=== PATIENT | female | born 1975 | race Caucasian/White ===

== ENCOUNTER 2016-11-09 19:09 | Emergency (ER) | payer OTHER ==
[2016-11-09 20:18] LABS: BILIRUBIN NEGATIVE (NEGATIVE); BLOOD 3+ Ery/uL (NEGATIVE); CLARITY CLEAR (CLEAR); COLOR YELLOW (YELLOW); GLUCOSE (U) 3+ mg/dL (NORMAL); KETONE (U) NEGATIVE (NEGATIVE); LEUKOCYTES NEGATIVE Leu/uL (NEGATIVE); NITRITE NEGATIVE (NEGATIVE); PROTEIN NEGATIVE (NEGATIVE); UROBILINOGEN 0.2 mg/dL (0.2-1.0)
[2016-11-09 20:18] LABS: BASOPHIL 0.6 % (0-2); EOSINOPHIL 3.4 % (0-5); HCT 38.7 % (37.0-47.0); HGB 12.1 g/dl (12.5-16.0); LYMPHOCYTE 25.3 % (15-48); MCH 23.4 pg (25.0-31.0); MCHC 31.3 g/dL (32.0-36.0); MONOCYTE 6.8 % (0-12); MPV 11.2 fL (6.0-9.5); NEUTROPHIL 63.9 % (41-80); PLT 327 K/uL (150-400); RBC 5.16 M/uL (4.20-5.40); RDW 16.7 % (11.5-14.0); WBC 8.5 K/uL (4.0-10.5)
[2016-11-09 20:24] LABS: BACTERIA TRACE
[2016-11-09 20:34] LABS: INR 1.02 (0.9-1.2)
[2016-11-09 20:35] LABS: PRO-BNP 20 pg/mL (0-125); TROPONIN T < 0.010 ng/mL
[2016-11-09 20:36] LABS: ALBUMIN 4.3 g/dL (3.5-5.0); BILIRUBIN - TOTAL 0.2 mg/dL (0.1-1.0); CREATININE 0.6 mg/dL (0.5-1.0); D-DIMER 0.3 ug/mLFEU (0.00-0.41); GLOBULIN (CALCULATION) 3.3 g/dL (2.2-4.2); POTASSIUM 4.5 mmol/L (3.5-5.1); TOTAL PROTEIN 7.6 g/dL (6.4-8.3)
== END 2016-11-09 23:48 | disposition home or self-care (01) ==
LOC: FER 19:09
PROVIDERS: Emergency Medicine
DX: M54.9 Dorsalgia, unspecified (principal); R31.9 Hematuria, unspecified; R07.1 Chest pain on breathing; R06.02 Shortness of breath; E11.9 Type 2 diabetes mellitus without complications; I10 Essential (primary) hypertension; F17.210 Nicotine dependence, cigarettes, uncomplicated; Z82.49 Family history of ischemic heart disease and other diseases of the circulatory system; Z86.718 Personal history of other venous thrombosis and embolism; Z79.84 Long term (current) use of oral hypoglycemic drugs; Z79.899 Other long term (current) drug therapy; Z95.5 Presence of coronary angioplasty implant and graft
CPT/HCPCS: 36415; 71020; 80053; 81001; 83880; 84484; 85025; 85379; 85610; 85730; 87804; 87899; 93005; J1885

== ENCOUNTER → 2021-10-26 | Day surgery (SDC) | payer OTHER ==
[~2021-10-26] VITALS: Ht 172.7 cm; Wt 102.2 kg
[~2021-10-26] MED LIST: ATORVASTATIN CA20 MG PO; CITALOPRAM HBR40 MG PO; FENOGLIDE120 MG PO; GABAPENTIN 100100 MG PO; METFORMIN HCL500 M1 PO; NORCO 5-325 TA1 EACH PO; OMEGA-3 ACID ETH1 GM PO; OMEPRAZOLE 20MG20 MG PO; PROAIR HFA8.5 GM INH; TRULICITY1.5 MG/0.5 SC
[2021-10-26 08:09] LABS: HCG (URINE) SCREEN NEGATIVE (NEGATIVE)
[2021-10-26 08:28] LABS: HCT 39.3 % (37.0-47.0); HGB 12.6 g/dl (12.5-16.0); MCHC 32.1 g/dL (32.0-36.0); MCV 81.2 fL (78.0-100.0); MPV 11.4 fL (6.0-9.5); RBC 4.84 M/uL (4.20-5.40); RDW 14.2 % (11.5-14.0); WBC 6.8 K/uL (4.0-10.5)
[2021-10-26 08:52] LABS: ALBUMIN 3.7 g/dL (3.4-5.0); BILIRUBIN - TOTAL 0.4 mg/dL (0.2-1.0); BUN/CREAT RATIO (CALC) 16.3 RATIO; CREATININE 0.49 mg/dL (0.51-0.95); GLOBULIN (CALCULATION) 3.4 g/dL; POTASSIUM 3.9 mmol/L (3.5-5.1); TOTAL PROTEIN 7.1 g/dL (6.4-8.2)
== END | disposition home or self-care (01) ==
LOC: FAS 07:47
PROVIDERS: Surgery
DX: D17.22 Benign lipomatous neoplasm of skin and subcutaneous tissue of left arm (principal); E78.5 Hyperlipidemia, unspecified; E11.9 Type 2 diabetes mellitus without complications; F41.9 Anxiety disorder, unspecified; Z79.84 Long term (current) use of oral hypoglycemic drugs; Z79.899 Other long term (current) drug therapy
CPT/HCPCS: 36415; 80053; 82962; 84703; 93005; J2250; J2405; J2704; J3010; J7120